=== PATIENT | male | born 1985 | race Caucasian/White ===

== ENCOUNTER 2020-05-09 07:32 | Emergency (ER) | payer OTHER ==
[2020-05-09] MEDS ORDERED: ONDANSETRON 4 MG/2 ML VIAL IVP STA (07:47)
[2020-05-09] MEDS ORDERED: SODIUM CHLORIDE 0.9% 1,000 ML IV STA (07:47)
[2020-05-09] MEDS ORDERED: KETOROLAC 30 MG/ML 1 ML VIAL IVP STA (07:47)
--- NOTE | 2020-05-09 07:59 | ED ---
General Adult HPI - General Chief complaint: Abdominal Pain Stated complaint: left side pain Time Seen by Provider: 05/09/20 07:38 Source: patient, RN notes reviewed Mode of arrival: ambulatory Limitations: no limitations - History of Present Illness Initial comments: 35-year-old male without any significant past medical history presents to the emergency department for a chief complaint of abdominal pain. Patient states this morning on his way to work he had some left lower back pain that has since migrated to his left lower abdomen. States it is a very sharp. Pain. Denies nausea vomiting. Denies diarrhea. States follow with her normal. Denies dysuria.Patient has no other complaints at this time including shortness of breath, chest pain, nausea or vomiting, headache, or visual changes. - Related Data Previous Rx's Medication Instructions Recorded Ibuprofen [Motrin] 600 mg PO Q6HR PRN #20 tab 05/09/20 Ondansetron [Zofran ODT] 4 mg PO Q8HR PRN #15 tab 05/09/20 Tamsulosin [Flomax] 0.4 mg PO DAILY #14 cap 05/09/20 Allergies Allergy/AdvReac Type Severity Reaction Status Date / Time No Known Allergies Allergy Verified 05/09/20 07:36 Review of Systems ROS Statement: Those systems with pertinent positive or pertinent negative responses have been documented in the HPI. ROS Other: All systems not noted in ROS Statement are negative. Past Medical History Past Medical History: No Reported History History of Any Multi-Drug Resistant Organisms: None Reported Past Surgical History: No Surgical Hx Reported Past Psychological History: No Psychological Hx Reported Smoking Status: Never smoker Past Alcohol Use History: None Reported Past Drug Use History: None Reported General Exam Limitations: no limitations General appearance: alert, in no apparent distress Head exam: Present: atraumatic, normocephalic, normal inspection Eye exam: Present: normal appearance, PERRL, EOMI. Absent: scleral icterus, conjunctival injection, periorbital swelling ENT exam: Present: normal exam, mucous membranes moist Neck exam: Present: normal inspection, full ROM. Absent: tenderness, meningismus, lymphadenopathy Respiratory exam: Present: normal lung sounds bilaterally. Absent: respiratory distress, wheezes, rales, rhonchi, stridor Cardiovascular Exam: Present: regular rate, normal rhythm, normal heart sounds. Absent: systolic murmur, diastolic murmur, rubs, gallop, clicks GI/Abdominal exam: Present: soft, normal bowel sounds. Absent: distended, tende rness, guarding, rebound, rigid Back exam: Absent: CVA tenderness (R), CVA tenderness (L) Course Vital Signs 05/09/20 07:35 Temperature 98.0 F Pulse Rate 62 Respiratory 18 Rate Blood Pressure 153/107 O2 Sat by Pulse 99 Oximetry Medical Decision Making - Medical Decision Making Vitals are stable. Patient is hypertensive likely secondary to pain. Physical exam is unremarkable. Abdomen is nontender. Patient completed the left back pain radiating to the abdomen. Denies testicular pain. CBC and CMP are unremarkable. Urinalysis does show 100 red blood cells. Nitrite is negative. CT abdomen and pelvis shows a 0.5-0.6 cm left ureteropelvic junction stone with minimal left hydronephrosis. Patient was given Toradol and had significant improvement in pain. Patient will be treated with Motrin and Zofran and Flomax. If pain is severe he will be given Tylenol 3 for breakthrough pain. Patient will follow-up with urology. I did discuss that this is borderline passable given the size and that it will be beneficial to see urology. X-ray was ob tained for urology purposes. - Lab Data Result diagrams: 05/09/20 07:45 05/09/20 07:45 Lab Results 05/09/20 05/09/20 05/09/20 Range/Units 07:45 07:45 07:45 WBC 9.2 (3.8-10.6) k/uL RBC 5.47 (4.30-5.90) m/uL Hgb 16.3 (13.0-17.5) gm/dL Hct 49.2 (39.0-53.0) % MCV 90.0 (80.0-100.0) fL MCH 29.9 (25.0-35.0) pg MCHC 33.2 (31.0-37.0) g/dL RDW 13.2 (11.5-15.5) % Plt Count 257 (150-450) k/uL Neutrophils % 77 % Lymphocytes % 16 % Monocytes % 4 % Eosinophils % 2 % Basophils % 1 % Neutrophils # 7.1 (1.3-7.7) k/uL Lymphocytes # 1.5 (1.0-4.8) k/uL Monocytes # 0.3 (0-1.0) k/uL Eosinophils # 0.2 (0-0.7) k/uL Basophils # 0.1 (0-0.2) k/uL Sodium 141 (137-145) mmol/L Potassium 3.9 (3.5-5.1) mmol/L Chloride 106 (98-107) mmol/L Carbon Dioxide 27 (22-30) mmol/L Anion Gap 8 mmol/L BUN 15 (9-20) mg/dL Creatinine 1.10 (0.66-1.25) mg/dL Est GFR (CKD-EPI)AfAm >90 (>60 ml/min/1.73 sqM) Est GFR (CKD-EPI)NonAf 88 (>60 ml/min/1.73 sqM) Glucose 110 H (74-99) mg/dL Calcium 9.2 (8.4-10.2) mg/dL Total Bilirubin 1.0 (0.2-1.3) mg/dL AST 31 (17-59) U/L ALT 36 (4-49) U/L Alkaline Phosphatase 70 (38-126) U/L Total Protein 7.5 (6.3-8.2) g/dL Albumin 4.5 (3.5-5.0) g/dL Amylase 53 (30-110) U/L Lipase 40 (23-300) U/L Urine Color Yellow Urine Appearance Cloudy (Clear) Urine pH 7.5 (5.0-8.0) Ur Specific [place] 1.024 (1.001-1.035) Urine Protein Trace H (Negative) Urine Glucose (UA) Negative (Negative) Urine Ketones Negative (Negative) Urine Blood Moderate H (Negative) Urine Nitrite Negative (Negative) Urine Bilirubin Negative (Negative) Urine Urobilinogen 2.0 (<2.0) mg/dL Ur Leukocyte Esterase Negative (Negative) Urine RBC 100 H (0-5) /hpf Urine WBC 1 (0-5) /hpf Ur Squamous Epith Cells <1 (0-4) /hpf Amorphous Sediment Rare H (None) /hpf Urine Bacteria Rare H (None) /hpf Urine Mucus Moderate H (None) /hpf Disposition Clinical Impression: Ureterolithiasis Disposition: HOME SELF-CARE Condition: Good Instructions (If sedation given, give patient instructions): Kidney Stones (ED) Additional Instructions: Please call urology in the next 1-2 days for their nearest appointment. Take Motrin for pain. If pain is severe take Tylenol 3. Take Zofran for nausea. Take Flomax daily as directed. If you've any worsening symptoms such has severe pain or inability to tolerate liquids return here to the emergency department. Prescriptions: Tamsulosin [Flomax] 0.4 mg PO DAILY #14 cap Ibuprofen [Motrin] 600 mg PO Q6HR PRN #20 tab PRN Reason: Pain Ondansetron [Zofran ODT] 4 mg PO Q8HR PRN #15 tab PRN Reason: Nausea Is patient prescribed a controlled substance at d/c from ED?: No Referrals: Lizzette Ryan DO [Primary Care Provider] - 1-2 days Nicho Bagley MD [STAFF PHYSICIAN] - 1-2 days Time of Disposition: 09:11
[2020-05-09 08:08] LABS: Basophils # (A) 0.1 k/uL (0-0.2); Basophils % (A) 1 %; Eosinophils # (A) 0.2 k/uL (0-0.7); Eosinophils % (A) 2 %; HCT 49.2 % (39.0-53.0); HGB 16.3 gm/dL (13.0-17.5); Lymphocytes # (A) 1.5 k/uL (1.0-4.8); Lymphocytes % (A) 16 %; MCH 29.9 pg (25.0-35.0); MCHC 33.2 g/dL (31.0-37.0); Mean Platelet Volume 6.7; Monocytes # (A) 0.3 k/uL (0-1.0); Monocytes % (A) 4 %; Neutrophils # (A) 7.1 k/uL (1.3-7.7); Neutrophils % (A) 77 %; Platelet Count 257 k/uL (150-450); RBC 5.47 m/uL (4.30-5.90); RDW 13.2 % (11.5-15.5); WBC 9.2 k/uL (3.8-10.6)
[2020-05-09 08:14] LABS: Amorphous Sediment,Urine Rare /hpf; Appearance,Urine Cloudy (Clear); Bacteria,Urine Rare /hpf; Bilirubin,Urine Negative (Negative); Blood,Urine Moderate (Negative); Color,Urine Yellow; Glucose,Urine (UA) Negative (Negative); Ketones,Urine Negative (Negative); Leukocyte Esterase,Urine Negative (Negative); Mucus,Urine Moderate /hpf; Nitrite,Urine Negative (Negative); PH, Urine 7.5 (5.0-8.0); Protein,Urine Trace (Negative); RBC,Urine 100 /hpf (0-5); Specific Gravity,Urine 1.024 (1.001-1.035); Squamous Epithelial Cell,Urine <1 /hpf (0-4); WBC,Urine 1 /hpf (0-5)
[2020-05-09 08:21] LABS: ALT 36 U/L (4-49); AST 31 U/L (17-59); African American GFR (CKD) >90 (>60 ml/min/1.73 sqM); Albumin 4.5 g/dL (3.5-5.0); Alkaline Phosphatase 70 U/L (38-126); Amylase 53 U/L (30-110); Anion Gap 8 mmol/L; Calcium 9.2 mg/dL (8.4-10.2); Carbon Dioxide 27 mmol/L (22-30); Chloride 106 mmol/L (98-107); Glucose 110 mg/dL (74-99); Non-African American GFR(CKD) 88 (>60 ml/min/1.73 sqM); Potassium 3.9 mmol/L (3.5-5.1); Sodium 141 mmol/L (137-145); Total Protein 7.5 g/dL (6.3-8.2)
--- NOTE | 2020-05-09 08:36 | CT ---
EXAMINATION TYPE: CT abdomen pelvis w con DATE OF EXAM: 05/09/2020 COMPARISON: None INDICATION: Left lower quadrant pain DLP: 1484 mGycm, Automated exposure control for dose reduction was used. CONTRAST: 100 mL of Isovue 300. Study performed without Oral Contrast TECHNIQUE: Axial images were obtained from above the diaphragm to the pubic rami in the axial plane a t 5 mm thick sections. Reconstructed images are reviewed on the computer in the coronal plane. FINDINGS: Limited CT sections are obtained the lung bases. The lung bases are clear. CT ABDOMEN: Liver: Normal Spleen: Normal Pancreas: Normal Adrenal glands: The adrenal glands are normal. Gallbladder: Normal Kidneys: No masses are evident. No hydronephrosis is present. No cysts are present. Is 0.3 cm calc ification may be in the upper portion left kidney. Calcification may be at the left ureterovesical ju nction with the transverse diameter of 0.5 cm. Minimal Hydronephrosis is present. Calcifications at t he inferior pole right kidney measuring 0.2 cm. Aorta: Normal Inferior vena cava: Normal. CT PELVIS: Some mild wall thickening of the proximal descending colon to nearly the sigmoid colon is present. So me mild thickening may be within the transverse colon. Correlate for mild colitis. Study is without o ral contrast limiting bowel evaluation. Appendix: Normal as visualized. Urinary bladder: Decompressed. This limits bladder evaluation. Genitourinary structures: Prostate is prominent. Osseous structures: No suspicious lytic or sclerotic lesions. IMPRESSIONS: 1. There is a 0.5 to 0.6 cm left ureteral pelvic junction stone with minimal left hydronephrosis. 2. Couple of additional punctate nonobstructing renal stones are present bilaterally. 3. Some mild colitis of predominantly within the descending colon may be present. Correlate with symp toms.
[2020-05-09 09:03] LABS: Blood Urea Nitrogen 15 mg/dL (9-20)
[2020-05-09] MEDS ORDERED: ACET/COD 300 MG/30 MG STARTER PACK 6 TAB BTL PO STA (09:13)
--- NOTE | 2020-05-09 09:13 | XR ---
EXAMINATION TYPE: XR KUB DATE OF EXAM: 05/09/2020 COMPARISON: NONE HISTORY: Pain TECHNIQUE: Single supine KUB image of the abdomen is obtained FINDINGS: Small bowel demonstrates no evidence for dilatation or air fluid levels. Gas and fecal material is seen in non-distended colon. No convincing evidence for pneumoperitoneum. No unusual calcifications. The lung bases are clear. The osseous structures are intact. IMPRESSION: 1. Overall nonobstructive bowel gas pattern.
[2020-05-09 09:26] VITALS: BP 131/88; PULSE 79; RESP 16; TEMP 98.2
== END 2020-05-09 09:25 | disposition home or self-care (01) ==
LOC: EC 07:32
DX: N13.2 Hydronephrosis with renal and ureteral calculous obstruction (principal); I10 Essential (primary) hypertension
CPT/HCPCS: 36415; 80053; 82150; 83690; 85025; 81001; 74018; 74177; 99284; 96374; 96375; 96361; J2405; J1885; Q9967

== ENCOUNTER 2022-02-17 15:12 | Emergency (ER) | payer OTHER ==
[2022-02-17] MEDS ORDERED: SODIUM CHLORIDE 0.9% 1,000 ML IV STA (15:23)
[2022-02-17] MEDS ORDERED: KETOROLAC 15 MG/ML 1 ML VIAL IVP STA (15:32)
--- NOTE | 2022-02-17 15:34 | ED ---
General Adult HPI - General Source: patient Mode of arrival: ambulatory Limitations: no limitations <Harshad Su - Last Filed: 02/17/22 16:04> <Yariel Woodall - Last Filed: 02/17/22 17:42> - General Chief complaint: Abdominal Pain Stated complaint: Kidney Stones Time Seen by Provider: 02/17/22 15:22 - History of Present Illness Initial comments: Dictation was produced using [employer] dictation software. please excuse any grammatical, word or spelling errors. Chief Complaint: 37-year-old male presents emergency Department with 1 week of kidney stone pain History of Present Illness: Is 37-year-old male states that he was traveling when all of a sudden he started to feel right-sided flank pain. Patient has had a kidney stone 3 years ago that he passed on his own. Patient states that he has flank pain that radiates down to his right groin feels exactly the same as 3 years ago. Denies any nausea. No vomiting. Does not notice any changes in the color of his urine. Denies any constitutional symptoms. The ROS documented in this emergency department record has been reviewed and confirmed by me. Those systems with pertinent positive or negative responses have been documented in the HPI. All other systems are other negative and/or noncontributory. PHYSICAL EXAM: General Impression: Alert and oriented x3, not in acute distress HEENT: Normocephalic atraumatic, extra-ocular movements intact, pupils equal and reactive to light bilaterally, mucous membranes moist. Cardiovascular: Heart regular rate and rhythm Chest: Able to complete full sentences, no retractions, no tachypnea Abdomen: abdomen soft, non-tender, non-distended, no organomegaly Musculoskeletal: Pulses present and equal in all extremities, no peripheral edema Motor: no focal deficits noted Neurological: CN II-XII grossly intact, no focal motor or sensory deficits noted Skin: Intact with no visualized rashes Psych: Normal affect and mood ED course: 37-year-old well-appearing male presents to emergency department for clinical presentation consistent with recurrent nephrolithiasis. Vital signs upon arrival are within acceptable limits. Patient care is signed out to Dr. Woodall pending labs and ultrasound (Harshad Su) - Related Data Home Medications Medication Instructions Recorded Confirmed No Known Home Medications 02/17/22 02/17/22 Allergies Allergy/AdvReac Type Severity Reaction Status Date / Time No Known Allergies Allergy Verified 02/17/22 15:17 Review of Systems ROS Other: All systems not noted in ROS Statement are negative. <Harshad Su - Last Filed: 02/17/22 16:04> ROS Other: All systems not noted in ROS Statement are negative. <Yariel Woodall - Last Filed: 02/17/22 17:42> ROS Statement: Those systems with pertinent positive or pertinent negative responses have been documented in the HPI. Past Medical History Past Medical History: No Reported History History of Any Multi-Drug Resistant Organisms: None Reported Past Surgical History: No Surgical Hx Reported Past Psychological History: No Psychological Hx Reported Smoking Status: Never smoker Past Alcohol Use History: Occasional Past Drug Use History: None Reported <Harshad Su - Last Filed: 02/17/22 16:04> General Exam Limitations: no limitations <Harshad Su - Last Filed: 02/17/22 16:04> Course <Yariel Woodall - Last Filed: 02/17/22 17:42> Vital Signs 02/17/22 15:17 Temperature 98 F Pulse Rate 86 Respiratory 18 Rate Blood Pressure 181/111 O2 Sat by Pulse 99 Oximetry - Reevaluation(s) Reevaluation #1: 02/17/22 17:35 Patient was endorsed to me by Dr. Su secondary to shift change. Patient's UA shows 11 RBC's. Patient's renal ultrasound shows mild right-sided hydronephrosis. Patient's symptoms and findings are consistent with right renal colic. Patient states that his pain is improved with the IV Toradol and IV fluids given to him in the ED. Patient denies development of any new pain or symptoms while in the ED. Patient is aware of his test results, and he feels comfortable being discharged home at this time. Patient was counseled about ki dney stones/renal colic, and he was clearly explained return and follow-up instructions. Patient was instructed to follow up closely with urology. Patient was instructed to have a low threshold for return to the emergency department should his symptoms worsen. Will discharge patient home with starter packs for Tylenol #3 and ODT Zofran. Patient feels comfortable with this plan. (Yariel Woodall) Medical Decision Making - Lab Data Result diagrams: 02/17/22 15:49 <Harshad Su - Last Filed: 02/17/22 16:04> - Lab Data Result diagrams: 02/17/22 15:49 02/17/22 15:49 <Yariel Woodall - Last Filed: 02/17/22 17:42> - Lab Data Lab Results 02/17/22 02/17/22 02/17/22 Range/Units 15:49 15:49 15:49 WBC 10.7 H (3.8-10.6) k/uL RBC 4.92 (4.30-5.90) m/uL Hgb 15.5 (13.0-17.5) gm/dL Hct 44.1 (39.0-53.0) % MCV 89.5 (80.0-100.0) fL MCH 31.4 (25.0-35.0) pg MCHC 35.1 (31.0-37.0) g/dL RDW 13.3 (11.5-15.5) % Plt Count 269 (150-450) k/uL MPV 6.8 Neutrophils % 79 % Lymphocytes % 13 % Monocytes % 4 % Eosinophils % 2 % Basophils % 0 % Neutrophils # 8.4 H (1.3-7.7) k/uL Lymphocytes # 1.4 (1.0-4.8) k/uL Monocytes # 0.4 (0-1.0) k/uL Eosinophils # 0.2 (0-0.7) k/uL Basophils # 0.1 (0-0.2) k/uL Sodium 137 (137-145) mmol/L Potassium 5.3 H (3.5-5.1) mmol/L Chloride 105 (98-107) mmol/L Carbon Dioxide 23 (22-30) mmol/L Anion Gap 9 mmol/L BUN 22 H (9-20) mg/dL Creatinine 1.82 H (0.66-1.25) mg/dL Est GFR (CKD-EPI)AfAm 54 (>60 ml/min/1.73 sqM) Est GFR (CKD-EPI)NonAf 47 (>60 ml/min/1.73 sqM) Glucose 110 H (74-99) mg/dL Calcium 8.7 (8.4-10.2) mg/dL Urine Color Yellow Urine Appearance Clear (Clear) Urine pH 6.5 (5.0-8.0) Ur Specific [place] 1.027 (1.001-1.035) Urine Protein Trace H (Negative) Urine Glucose (UA) Negative (Negative) Urine Ketones Negative (Negative) Urine Blood Small H (Negative) Urine Nitrite Negative (Negative) Urine Bilirubin Negative (Negative) Urine Urobilinogen 2.0 (<2.0) mg/dL Ur Leukocyte Esterase Negative (Negative) Urine RBC 11 H (0-5) /hpf Urine WBC 1 (0-5) /hpf Urine Mucus Rare H (None) /hpf - Radiology Data Renal/bladder ultrasound: There is mild right-sided hydronephrosis. There is a 4 mm calculus upper pole left kidney. Hydronephrosis appears new compared to the computed tomography scan of 05/09/2020. There is clearing of left-sided hydronephrosis compared to CT scan. (Yariel Woodall) Disposition <Harshad Su - Last Filed: 02/17/22 16:04> Is patient prescribed a controlled substance at d/c from ED?: No Time of Disposition: 17:38 <Yariel Woodall - Last Filed: 02/17/22 17:42> Clinical Impression: Nephrolithiasis, Renal colic Disposition: HOME SELF-CARE Condition: Stable Instructions (If sedation given, give patient instructions): Kidney Stones (ED) Additional Instructions: Return to the ER immediately should you develop new or worsening pain, a fever, persistent vomiting, shortness of breath, feeling dizzy or faint, or new or worsening symptoms. Follow up closely with urology. Referrals: Aurora Bowers DO [Primary Care Provider] - 1-2 days Nicho Bagley MD [STAFF PHYSICIAN] - 1-2 days
[2022-02-17 16:02] LABS: Basophils # (A) 0.1 k/uL (0-0.2); Basophils % (A) 0 %; Eosinophils # (A) 0.2 k/uL (0-0.7); Eosinophils % (A) 2 %; HCT 44.1 % (39.0-53.0); HGB 15.5 gm/dL (13.0-17.5); Lymphocytes # (A) 1.4 k/uL (1.0-4.8); Lymphocytes % (A) 13 %; MCH 31.4 pg (25.0-35.0); MCHC 35.1 g/dL (31.0-37.0); MCV 89.5 fL (80.0-100.0); Mean Platelet Volume 6.8; Monocytes # (A) 0.4 k/uL (0-1.0); Monocytes % (A) 4 %; Neutrophils # (A) 8.4 k/uL (1.3-7.7); Neutrophils % (A) 79 %; Platelet Count 269 k/uL (150-450); RBC 4.92 m/uL (4.30-5.90); RDW 13.3 % (11.5-15.5); WBC 10.7 k/uL (3.8-10.6)
[2022-02-17 16:12] LABS: Calcium 8.7 mg/dL (8.4-10.2)
[2022-02-17 16:20] LABS: Appearance,Urine Clear (Clear); Bilirubin,Urine Negative (Negative); Blood,Urine Small (Negative); Color,Urine Yellow; Glucose,Urine (UA) Negative (Negative); Ketones,Urine Negative (Negative); Leukocyte Esterase,Urine Negative (Negative); Mucus,Urine Rare /hpf; Nitrite,Urine Negative (Negative); PH, Urine 6.5 (5.0-8.0); Protein,Urine Trace (Negative); RBC,Urine 11 /hpf (0-5); Specific Gravity,Urine 1.027 (1.001-1.035); WBC,Urine 1 /hpf (0-5)
[2022-02-17 16:27] LABS: Potassium 5.3 mmol/L (3.5-5.1)
--- NOTE | 2022-02-17 17:12 | US ---
EXAMINATION TYPE: US kidneys/renal and bladder DATE OF EXAM: 02/17/2022 COMPARISON: CT CLINICAL HISTORY: flank pain. Right flank pain, pt states h/o renal stones EXAM MEASUREMENTS: Right Kidney: 12.7 x 6.1 x 5.4 cm cm Left Kidney: 11.9 x 6.1 x 5.5 cm cm Right Kidney: Unable to visualize calculi, however renal pelvis mildly dilated with mild hydro Left Kidney: No evidence of hydro, probable renal calculi upper pole= 0.4 cm Bladder: Pt voided just prior to exam IMPRESSION: There is mild right-sided hydronephrosis. There is a 4 mm calculus upper pole left kidney. Hydronephr osis appears new compared to the CT scan of 05/09/2020. There is clearing of left-sided hydronephrosis compared to CT SCAN.
[2022-02-17] MEDS ORDERED: ONDANSETRON 4 MG ODT STARTER PACK 2 TAB BTL PO STA (17:37)
[2022-02-17] MEDS ORDERED: ACET/COD 300 MG/30 MG STARTER PACK 6 TAB BTL PO STA (17:37)
[2022-02-17 18:07] VITALS: BP 175/118; PULSE 85; RESP 16; TEMP 97.8
== END 2022-02-17 18:12 | disposition home or self-care (01) ==
LOC: EC 15:12
DX: N20.0 Calculus of kidney (principal); N23 Unspecified renal colic
CPT/HCPCS: 36415; 80048; 85025; 81001; 76770; 99284; 96374; 96361; J1885; S0119

== ENCOUNTER 2022-02-18 17:43 | Emergency (ER) | payer OTHER ==
[2022-02-18 17:49] VITALS: TEMP 98.2
[2022-02-18] MEDS ORDERED: ACETAMINOPHEN TAB 500 MG TAB PO STA (22:31)
--- NOTE | 2022-02-18 22:40 | XR ---
EXAMINATION TYPE: XR chest 2V DATE OF EXAM: 02/18/2022 COMPARISON: NONE HISTORY: Headache. High blood pressure. TECHNIQUE: 2 views FINDINGS: Heart and mediastinum are normal. Lungs are clear of consolidation. There are no hilar mass es. Bony thorax is intact. IMPRESSION: No active cardiopulmonary disease.
[2022-02-18 23:19] LABS: Basophils # (A) 0.1 k/uL (0-0.2); Basophils % (A) 1 %; Eosinophils # (A) 0.2 k/uL (0-0.7); Eosinophils % (A) 2 %; HCT 45.2 % (39.0-53.0); HGB 15.3 gm/dL (13.0-17.5); Lymphocytes # (A) 1.9 k/uL (1.0-4.8); Lymphocytes % (A) 22 %; MCH 30.7 pg (25.0-35.0); MCHC 33.9 g/dL (31.0-37.0); MCV 90.4 fL (80.0-100.0); Mean Platelet Volume 6.6; Monocytes # (A) 0.4 k/uL (0-1.0); Monocytes % (A) 5 %; Neutrophils % (A) 69 %; Platelet Count 304 k/uL (150-450); RDW 13.2 % (11.5-15.5); WBC 8.7 k/uL (3.8-10.6)
[2022-02-18] MEDS ORDERED: cloNIDine HCL 0.1 MG TAB PO STA (23:25)
[2022-02-18 23:52] LABS: Albumin 4.2 g/dL (3.5-5.0); Potassium 4.4 mmol/L (3.5-5.1); Total Bilirubin 0.9 mg/dL (0.2-1.3); Total Protein 7.2 g/dL (6.3-8.2)
--- NOTE | 2022-02-19 00:05 | ED ---
General Adult HPI - General Chief complaint: Recheck/Abnormal Lab/Rx Stated complaint: High BP,Headache Time Seen by Provider: 02/18/22 21:23 Source: patient, RN notes reviewed Mode of arrival: ambulatory Limitations: no limitations - History of Present Illness Initial comments: 37-year-old male presents to the emergency department for evaluation of elevated blood pressure. Patient states he was here yesterday and diagnosed with a kidney stone. States he was told that his blood pressure was elevated and that he should follow up with his PCP. Patient states he is scheduled to see his PCP tomorrow for a recheck. However, patient reports developing a headache while at work today so checked his blood pressure and found it to be elevated. States he went to urgent care and was told he would need to go to the ER. Patient denies any other symptoms associated with elevated blood pressure side from the headache. No fever, chills, blurry vision, dizziness, chest pain, difficulty breathing, shortness of breath, abdominal pain, nausea, vomiting, diarrhea, dysuria, or hematuria. Denies any ongoing discomfort associated with kidney stones. - Related Data Home Medications Medication Instructions Recorded Confirmed No Known Home Medications 02/17/22 02/18/22 Allergies Allergy/AdvReac Type Severity Reaction Status Date / Time No Known Allergies Allergy Verified 02/18/22 21:59 Review of Systems ROS Statement: Those systems with pertinent positive or pertinent negative responses have been documented in the HPI. ROS Other: All systems not noted in ROS Statement are negative. Past Medical History Past Medical History: No Reported History History of Any Multi-Drug Resistant Organisms: None Reported Past Surgical History: No Surgical Hx Reported Past Psychological History: No Psychological Hx Reported Smoking Status: Never smoker Past Alcohol Use History: Occasional Past Drug Use History: None Reported General Exam Limitations: no limitations (Well-developed, well-nourished male in no acute distress. Initial temperature 98.2, pulse 79 respirations 18, blood pressure 186/114, pulse ox 98% on room air.) General appearance: alert, in no apparent distress Eye exam: Present: normal appearance, PERRL, EOMI. Absent: scleral icterus, conjunctival injection, periorbital swelling Neck exam: Present: normal inspection, full ROM. Absent: tenderness, meningismus, lymphadenopathy Respiratory exam: Present: normal lung sounds bilaterally. Absent: respiratory distress, wheezes, rales, rhonchi, stridor Cardiovascular Exam: Present: regular rate, normal rhythm, normal heart sounds. Absent: systolic murmur, diastolic murmur, rubs, gallop, clicks GI/Abdominal exam: Present: soft, normal bowel sounds. Absent: distended, tenderness, guarding, rebound, rigid Neurological exam: Present: alert, oriented X3, CN II-XII intact Psychiatric exam: Present: normal affect, normal mood Course Vital Signs 02/18/22 02/18/22 02/18/22 17:47 20:09 22:58 Temperature 98.2 F Pulse Rate 79 69 89 Respiratory 18 19 18 Rate Blood Pressure 186/114 188/120 O2 Sat by Pulse 98 100 97 Oximetry 02/18/22 02/18/22 02/19/22 23:01 23:36 00:18 Temperature Pulse Rate 80 94 72 Respiratory 20 15 20 Rate Blood Pressure 175/116 162/107 144/87 O2 Sat by Pulse 99 100 97 Oximetry - Reevaluation(s) Reevaluation #1: 02/18/22 23:40 Upon reassessment, patient is noted to be resting comfortably. Reports improvement in headache discomfort. Blood pressure is 159/97. Awaiting remainder of laboratory studies, however intend to discharge patient home to follow up with PCP tomorrow as scheduled. Patient is agreeable with this plan of care. Medical Decision Making - Medical Decision Making 37-year-old male with no significant past medical history substance to the emergency department for evaluation of elevated blood pressure and headache. Upon exam, patient is well-appearing and in no acute distress. He complains of mild headache for which he was given Tylenol and Motrin. Patient is kimmie rologically intact. No chest pain or difficulty breathing. States he was diagnosed with kidney stones yesterday, however is not experiencing any pain or dysuria at this time. Blood pressure was measured and found to be persistently elevated. SBP 160-190, DBP 107-120. Because of his elevated diastolic pressure and complete headache, patient was given a single dose of clonidine with improvement in blood pressure (159/97). Laboratory studies were reviewed and are unremarkable. Chest x-ray is normal. EKG shows sinus rhythm with no ectopy. Patient is scheduled to see his PCP tomorrow and is encouraged to keep this appointment. Return parameters were discussed in detail. Patient verbalizes understanding and agrees with this plan. Attending: Wagner. - Lab Data Result diagrams: 02/18/22 23:06 02/18/22 23:06 Lab Results 02/18/22 02/18/22 02/18/22 Range/Units 23:06 23:06 23:06 WBC 8.7 (3.8-10.6) k/uL RBC 5.00 (4.30-5.90) m/uL Hgb 15.3 (13.0-17.5) gm/dL Hct 45.2 (39.0-53.0) % MCV 90.4 (80.0-100.0) fL MCH 30.7 (25.0-35.0) pg MCHC 33.9 (31.0-37.0) g/dL RDW 13.2 (11.5-15.5) % Plt Count 304 (150-450) k/uL MPV 6.6 Neutrophils % 69 % Lymphocytes % 22 % Monocytes % 5 % Eosinophils % 2 % Basophils % 1 % Neutrophils # 6.0 (1.3-7.7) k/uL Lymphocytes # 1.9 (1.0-4.8) k/uL Monocytes # 0.4 (0-1.0) k/uL Eosinophils # 0.2 (0-0.7) k/uL Basophils # 0.1 (0-0.2) k/uL Sodium 134 L (137-145) mmol/L Potassium 4.4 (3.5-5.1) mmol/L Chloride 101 (98-107) mmol/L Carbon Dioxide 29 (22-30) mmol/L Anion Gap 4 mmol/L BUN 21 H (9-20) mg/dL Creatinine 1.47 H (0.66-1.25) mg/dL Est GFR (CKD-EPI)AfAm 71 (>60 ml/min/1.73 sqM) Est GFR (CKD-EPI)NonAf 61 (>60 ml/min/1.73 sqM) Glucose 84 (74-99) mg/dL Calcium 9.0 (8.4-10.2) mg/dL Total Bilirubin 0.9 (0.2-1.3) mg/dL AST 25 (17-59) U/L ALT 21 (4-49) U/L Alkaline Phosphatase 65 (38-126) U/L Troponin I <0.012 (0.000-0.034) ng/mL Total Protein 7.2 (6.3-8.2) g/dL Albumin 4.2 (3.5-5.0) g/dL - EKG Data EKG shows normal: sinus rhythm Rate: normal EKG Comments: EKG was obtained at 2307 and shows sinus rhythm. Ventricular rate 67, DC interval 157, QRS duration 104, QT/QTC 369/384. Interpretation normal ECG. - Radiology Data Radiology results: report reviewed, image reviewed Two-view chest x-ray was obtained. Report was reviewed in its entirety. Impression per Dr. Babb is no active cardiopulmonary disease. Disposition Clinical Impression: Hypertensive urgency, Headache Disposition: HOME SELF-CARE Condition: Stable Instructions (If sedation given, give patient instructions): Hypertension (ED) Additional Instructions: Follow-up with your PCP as scheduled. May take Tylenol or Motrin if needed for headache. Return to the emergency department with any new, worsening, or concerning symptoms. Is patient prescribed a controlled substance at d/c from ED?: No Referrals: Aurora Bowers DO [Primary Care Provider] - 1-2 days Time of Disposition: 00:25
[2022-02-19] MEDS ORDERED: IBUPROFEN 600 MG TAB PO STA (00:24)
[2022-02-19 00:52] VITALS: RESP 15
[2022-02-19 01:09] VITALS: BP 129/97; PULSE 80
== END 2022-02-19 01:08 | disposition home or self-care (01) ==
LOC: EC 17:43
DX: I16.0 Hypertensive urgency (principal); R51.9 Headache, unspecified
CPT/HCPCS: 36415; 71046; 80053; 84484; 85025; 93005; 99284

== ENCOUNTER → 2022-02-20 | Outpatient (CLI) | payer OTHER ==
--- NOTE | 2022-02-20 14:48 | XR ---
KUB HISTORY: Kidney stones Frontal KUB and 2 images correlated to prior KUB dated 05/09/2020, ultrasound 02/17/2022. There is an oval calcification at the level of the right L4 transverse process measuring approximatel y 5 mm not seen on previous exam. Overlying bowel gas may obscure detail. No evident bowel obstructio n or pneumoperitoneum. Bone mineralization is normal. No left-sided calcification identified with cer tainty. IMPRESSION: Right ureteral calcification
== END | disposition home or self-care (01) ==
LOC: RADXRMAIN 13:25
PROVIDERS: ATTEND Urology
DX: N20.0 Calculus of kidney (principal); N20.1 Calculus of ureter
CPT/HCPCS: 74018

== ENCOUNTER → 2022-03-04 | Outpatient (CLI) | payer OTHER ==
--- NOTE | 2022-03-04 11:14 | XR ---
EXAMINATION TYPE: XR KUB DATE OF EXAM: 03/04/2022 COMPARISON: 02/21/2012 HISTORY: Pain TECHNIQUE: One view abdominal series FINDINGS: The osseous structures are intact. The bowel gas pattern is nonspecific. Calcification seen along th e right paraspinal line is not seen with certainty.. IMPRESSION: 1. Nonspecific abdomen. Correlate for recently passed renal stone.
== END | disposition home or self-care (01) ==
LOC: RADXRMAIN 10:43
PROVIDERS: ATTEND Urology
DX: N20.1 Calculus of ureter (principal)
CPT/HCPCS: 74018

== ENCOUNTER 2023-09-20 13:36 | Emergency (ER) | payer OTHER ==
[2023-09-20] MEDS ORDERED: FLUORESCEIN STRIPS 1 MG STRIP LEFT EYE ONE (13:47)
[2023-09-20] MEDS ORDERED: PROPARACAINE 0.5% OPHTH DROPS 15 ML BTL LEFT EYE STA (13:47)
[2023-09-20 13:49] VITALS: BP 128/75; PULSE 72; RESP 16; TEMP 98
--- NOTE | 2023-09-20 14:02 | ED ---
Eye Problem HPI - General Chief complaint: Eye Problems Stated complaint: Lt eye pain Time Seen by Provider: 09/20/23 13:46 Source: patient, RN notes reviewed Mode of arrival: ambulatory Limitations: no limitations - History of Present Illness Initial comments: 38-year-old well-appearing male presents to the emergency room with complaints of a possible metal shaving in his left eye about 2 hours ago. 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 He does have tearing with some discomfort. No visual changes. States his tetanus shot is up-to-date. No other medical history. MD chief complaint: eye pain, foreign body (possible metal shaving ) -: hour(s) (2) Onset Description: sudden Location: left eye Place: street/outdoors If Injury: other (grinding) Severity scale (1-10): 5 If Pain, Quality: aching Consistency: intermittent Treatments Prior to Arrival: none - Related Data Patient Tetanus UTD: Yes Previous Rx's Medication Instructions Recorded Ciprofloxacin Ophth Soln [Ciloxan 2 drops LEFT EYE Q6H 3 Days #2.5 ml 09/20/23 0.3% Ophth Soln] Allergies Allergy/AdvReac Type Severity Reaction Status Date / Time No Known Allergies Allergy Verified 02/18/22 21:59 Review of Systems ROS Statement: Those systems with pertinent positive or pertinent negative responses have been documented in the HPI. ROS Other: All systems not noted in ROS Statement are negative. Past Medical History Past Medical History: No Reported History History of Any Multi-Drug Resistant Organisms: None Reported Past Surgical History: No Surgical Hx Reported Past Psychological History: No Psychological Hx Reported Smoking Status: Never smoker Past Alcohol Use History: Occasional Past Drug Use History: None Reported General Exam Limitations: no limitations General appearance: alert, in no apparent distress Head exam: Present: atraumatic, normocephalic Eye exam: Present: EOMI, conjunctival injection (mild left eye with tearing). Absent: scleral icterus, nystagmus, periorbital swelling, periorbital tenderness Neck exam: Present: full ROM. Absent: meningismus Respiratory exam: Absent: respiratory distress, accessory muscle use Cardiovascular Exam: Present: regular rate Neurological exam: Present: alert, oriented X3 Psychiatric exam: Present: normal affect, normal mood Skin exam: Present: warm, dry. Absent: cyanosis, diaphoretic, petechiae, pallor Course Vital Signs 09/20/23 13:38 Temperature 98 F Pulse Rate 72 Respiratory 16 Rate Blood Pressure 128/75 O2 Sat by Pulse 98 Oximetry Procedures - Forgein Body Removal Eye Site: Left Anesthetic Used: Proparacaine Eye Exam Technique: Dangelo Lamp Foreign Body Suspected: Metal Forgein Body Removal Technique: Cotton Swab, Needle Remaining Debris: No Patient Tolerated: no complications Medical Decision Making - Medical Decision Making Was pt. sent in by a medical professional or institution (, RACHEL, SENIOR BUSINESS ANALYST, urgent care, hospital, or care home...) When possible be specific @ -No Did you speak to anyone other than the patient for history (EMS, parent, family, police, friend...)? What history was obtained from this source @ -No Did you review nursing and triage notes (agree or disagree)? Why? @ -I reviewed and agree with nursing and triage notes Were old charts reviewed (outside hosp., previous admission, EMS record, old EKG, old radiological studies, urgent care reports/EKG's, care home records)? Report findings @ -No old charts were reviewed Differential Diagnosis (chest pain, altered mental status, abdominal pain women, abdominal pain men, vaginal bleeding, weakness, fever, dyspnea, syncope, headache, dizziness, GI bleed, back pain, seizure, CVA, palpatations, mental health, musculoskeletal)? @ -Corneal abrasion, corneal foreign body, conjunctivitis EKG interpreted by me (3pts min.). @ -n/a X-rays interpreted by me (1pt min.). @ -None done CT interpreted by me (1pt min.). @ -None done U/S interpreted by me (1pt. min.). @ -None done What testing was considered but not performed or refused? (CT, X-rays, U/S, labs)? Why? @ -None What meds were considered but not given or refused? Why? @ -None Did you discuss the management of the patient with other professionals (professionals i.e. RACHEL Dominguez, SENIOR BUSINESS ANALYST, lab, RT, psych nurse, social services designee, fibreglass laminator, t eacher, chief communications officer, dependency case manager)? Give summary @ -No Was smoking cessation discussed for >3mins.? @ -No Was critical care preformed (if so, how long)? @ -No Were there social determinants of health that impacted care today? How? (Homelessness, low income, unemployed, alcoholism, drug addiction, transportation, low edu. Level, literacy, decrease access to med. care, assisted, rehab)? @ -No Was there de-escalation of care discussed even if they declined (Discuss DNR or withdrawal of care, Hospice)? DNR status @ -No What co-morbidities impacted this encounter? (DM, HTN, Smoking, COPD, CAD, Cancer, CVA, ARF, Chemo, Hep., AIDS, mental health diagnosis, sleep apnea, morbid obesity)? @ -None Was patient admitted / discharged? Hospital course, mention meds given and ro liana, prescriptions, significant lab abnormalities, going to OR and other pertinent info. @ -Discharged 38-year-old well-appearing male presents to the emergency room with complaints of a possible metal shaving in his left eye about 2 hours ago. 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 He does have tearing with some discomfort. No visual changes. States his tetanus shot is up-to-date. No other medical history. No visual changes. Mild conjunctival injection. Proparacaine with fluorescein and wood lamps exam did reveal a small metal fragment at 9:00, removed with cotton swab and 18-gauge needle. No evidence of corneal abrasion. Patient will be placed on antibiotic drops prophylactically and follow-up with ophthalmology as needed. Tetanus shot is up-to-date. Case discussed with Dr. Su. Undiagnosed new problem with uncertain prognosis? @ -No Drug Therapy requiring intensive monitoring for toxicity (Heparin, Nitro, Insulin, Cardizem)? @ -No Were any procedures done? @ -Foreign body removal left eye Diagnosis/symptom? @ -Foreign body left eye Acute, or Chronic, or Acute on Chronic? @ -Acute Uncomplicated (without systemic symptoms) or Complicated (systemic symptoms)? @ -Uncomplicated Side effects of treatment? @ -No Exacerbation, Progression, or Severe Exacerbation? @ -No Poses a threat to life or bodily function? How? (Chest pain, [place], [place], pneumonia, PE, COPD, DKA, ARF, appy, cholecystitis, CVA, Diverticulitis, Homicidal, Suicidal, threat to staff... and all critical care pts) @ -No Disposition Clinical Impression: Corneal foreign body Disposition: HOME SELF-CARE Condition: Good Instructions (If sedation given, give patient instructions): Eye Foreign Body (ED) Additional Instructions: Use the eyedrops as prescribed and follow up with ophthalmology next week as needed. Prescriptions: Ciprofloxacin Ophth Soln [Ciloxan 0.3% Ophth Soln] 2 drops LEFT EYE Q6H 3 Days #2.5 ml Is patient prescribed a controlled substance at d/c from ED?: No Referrals: Aurora Bowers DO [Primary Care Provider] - 1-2 days Spencer Shelton MD [STAFF PHYSICIAN] - 1-2 days Time of Disposition: 14:23
== END 2023-09-20 14:50 | disposition home or self-care (01) ==
LOC: EC 13:36
DX: T15.02XA Foreign body in cornea, left eye, initial encounter (principal)
CPT/HCPCS: 65222; 99283

== ENCOUNTER 2024-08-21 13:00 | Emergency (ER) | payer OTHER ==
--- NOTE | 2024-08-21 13:23 | ED ---
Upper Extremity HPI - General Source: patient, RN notes reviewed Mode of arrival: ambulatory Limitations: no limitations <Jordyn Kaur - Last Filed: 08/21/24 13:22> - General Source: patient, RN notes reviewed Limitations: no limitations <Joni Puri - Last Filed: 08/21/24 14:41> - General Chief Complaint: Extremity Injury, Upper Stated Complaint: L hand injury Time Seen by Provider: 08/21/24 13:22 - History of Present Illness Initial Comments: Quick note: 49-year-old male presented to ER with a chief complaint of left hand injury. Patient states he accidentally smashed his 3rd through 5th fingers and gears last night. He does reports paresthesias to left third fourth and fifth digits. No other injuries. (Jordyn Kaur) Patient is a 39-year-old male presenting to the emergency department following injury to his left hand. Patient states at work he accidentally hit his 3 fingers caught in gears. Patient has discomfort of all 3 fingers. No laceration. No other area of injury or concern. Discomfort does increase with movement. (Joni Puri) - Related Data Previous Rx's Medication Instructions Recorded Ciprofloxacin Ophth Soln [Ciloxan 2 drops LEFT EYE Q6H 3 Days #2.5 ml 09/20/23 0.3% Ophth Soln] Allergies Allergy/AdvReac Type Severity Reaction Status Date / Time No Known Allergies Allergy Verified 08/21/24 13:15 Review of Systems ROS Other: All systems not noted in ROS Statement are negative. <Jordyn Kaur - Last Filed: 08/21/24 13:22> ROS Other: All systems not noted in ROS Statement are negative. Constitutional: Denies: fever Eyes: Denies: eye pain ENT: Denies: ear pain Respiratory: Denies: dyspnea Cardiovascular: Denies: chest pain Gastrointestinal: Denies: abdominal pain Neurological: Denies: headache, weakness <Joni Puri - Last Filed: 08/21/24 14:41> ROS Statement: Those systems with pertinent positive or pertinent negative responses have been documented in the HPI. Past Medical History Past Medical History: No Reported History History of Any Multi-Drug Resistant Organisms: None Reported Past Surgical History: No Surgical Hx Reported Past Psychological History: No Psychological Hx Reported Smoking Status: Never smoker Past Alcohol Use History: Occasional Past Drug Use History: None Reported <Jordyn Kaur - Last Filed: 08/21/24 13:22> General Exam Limitations: no limitations <Jordyn Kaur - Last Filed: 08/21/24 13:22> Limitations: no limitations General appearance: alert, in no apparent distress Head exam: Present: normocephalic Eye exam: Present: normal appearance Neck exam: Present: normal inspection Respiratory exam: Present: normal lung sounds bilaterally Cardiovascular Exam: Present: regular rate, normal rhythm GI/Abdominal exam: Present: soft. Absent: tenderness Extremities exam: Present: other (Left 3rd-4th and fifth digits with mild swelling and ecchymosis. Moderate tenderness throughout. Subungual hematoma third digit approximately 100%. Subungual hematoma fifth digit less than 50%) Neurological exam: Present: alert. Absent: motor sensory deficit Psychiatric exam: Present: normal affect, normal mood Skin exam: Present: other (Ecchymosis) <Joni Puri - Last Filed: 08/21/24 14:41> - General Exam Comments Initial Comments: Visual Physical Exam Vital signs reviewed General: Well-appearing, nontoxic, no acute distress. Head: Normocephalic, atraumatic Eyes: PERRLA, EOMI ENT: Airway patent Chest: Nonlabored breathing Skin: No visual rash, normal skin tone, bruising to left third, fourth and fifth left digits. Neuro: Alert and oriented 3 Musculoskeletal: No gross abnormalities (Jordyn Kaur) Course Vital Signs 08/21/24 13:11 Temperature 98.4 F Pulse Rate 74 Respiratory 15 Rate Blood Pressure 141/99 O2 Sat by Pulse 97 Oximetry Procedures - Orthopedic Splinting/Casting Injury #1 Side: left Upper Extremity Injury Location: short arm, hand Upper Extremity Immobilizer: volar splint <Joni Puri - Last Filed: 08/21/24 14:41> - Procedures Initial comment: Trepanation: Verbal informed consent provided. Left middle finger subungual hematoma. Subungual edema hematoma is 100%. Areas cleansed with Betadine and then rinsed with water. Trepanation was done using electrocautery in 3 separate locations with good release of blood. No complications. Patient tolerated procedure well. (Joni Puri) Medical Decision Making <Jordyn Kaur - Last Filed: 08/21/24 13:22> <Joni Puri - Last Filed: 08/21/24 14:41> - Medical Decision Making I performed the quick note portion of this chart. Electronically signed by Jordyn Kaur PA-C (Jordyn Kaur) Was pt. sent in by a medical professional or institution (RACHEL Dominguez, SHIP CEILER, urgent care, hospital, or fdc...) When possible be specific @ -No Did you speak to anyone other than the patient for history (EMS, parent, family, police, friend...)? What history was obtained from this source @ -No Did you review nursing and triage notes (agree or disagree)? Why? @ -I reviewed and agree with nursing and triage notes Were old charts reviewed (outside hosp., previous admission, EMS record, old EKG, old radiological studies, urgent care reports/EKG's, fdc records)? Report findings @ -No old charts were reviewed Differential Diagnosis (chest pain, altered mental status, abdominal pain women, abdominal pain men, vaginal bleeding, weakness, fever, dyspnea, syncope, headache, dizziness, GI bleed, back pain, seizure, CVA, palpatations, mental health, musculoskeletal)? @ -Differential Musculoskeletal Muscular strain, contusion, ligament sprain, fracture, arthritis, septic arthritis, bursitis, cellulitis, muscle spasm, nerve compression, DVT, arterial occlusion, herpes zoster, electrolyte abnormality, tumor.... This is not meant to be in all inclusive list EKG interpreted by me (3pts min.). @ -As above X-rays interpreted by me (1pt min.). @ -Left hand x-ray without acute abnormality CT interpreted by me (1pt min.). @ -None done U/S interpreted by me (1pt. min.). @ -None done What testing was considered but not performed or refused? (CT, X-rays, U/S, labs)? Why? @ -None What meds were considered but not given or refused? Why? @ -None Did you discuss the management of the patient with other professionals (professionals i.e. RACHEL Dominguez, SHIP CEILER, lab, RT, psych nurse, social media campaign manager, relations director, teacher, guest services officer, case reviewer)? Give summary @ -No Was smoking cessation discussed for >3mins.? @ -No Was critical care preformed (if so, how long)? @ -No Were there social determinants of health that impacted care today? How? (Homelessness, low income, unemployed, alcoholism, drug addiction, transportation, low edu. Level, literacy, decrease access to med. care, fci, rehab)? @ -No Was there de-escalation of care discussed even if they declined (Discuss DNR or withdrawal of care, Hospice)? DNR status @ -No What co-morbidities impacted this encounter? (DM, HTN, Smoking, COPD, CAD, Cancer, CVA, ARF, Chemo, Hep., AIDS, mental health diagnosis, sleep apnea, morbid obesity)? @ -None Was patient admitted / discharged? Hospital course, mention meds given and route, prescriptions, significant lab abnormalities, going to OR and other pertinent info. @ -Patient presents with work injury yesterday. No fracture on x-ray. Patient has subungual hematoma that was drained with trephination. Electrocautery used. Splint placed. Patient will be discharged with follow-up. Undiagnosed new problem with uncertain prognosis? @ -No Drug Therapy requiring intensive monitoring for toxicity (Heparin, Nitro, Insulin, Cardizem)? @ -No Were any procedures done? @ -No Diagnosis/symptom? @ -Subungual hematoma, finger contusion Acute, or Chronic, or Acute on Chronic? @ -Acute, acute Uncomplicated (without systemic symptoms) or Complicated (systemic symptoms)? @ -Default Side effects of treatment? @ -No Exacerbation, Progression, or Severe Exacerbation? @ -No Poses a threat to life or bodily function? How? (Chest pain, [place], [place], pneumonia, PE, COPD, DKA, ARF, appy, cholecystitis, CVA, Diverticulitis, Homicidal, Suicidal, threat to staff... and all critical care pts) @ -No (Joni Puri) Disposition <Jordyn Kaur - Last Filed: 08/21/24 13:22> Is patient prescribed a controlled substance at d/c from ED?: No Time of Disposition: 14:40 <Joni Puri - Last Filed: 08/21/24 14:41> Clinical Impression: Subungual hematoma, Finger contusion Disposition: HOME SELF-CARE Condition: Stable Instructions (If sedation given, give patient instructions): Subungual Hematoma (ED), Crush Injury (ED) Additional Instructions: Please follow-up with primary care physician or [facility] or orthopedics in the next day or 2 for recheck. Use caution with using left hand. Return for increased pain, swelling, bleeding, worsening or changing symptoms or any other concerns. Referrals: Aurora Bowers DO [Primary Care Provider] - 1-2 days Mata Sy DO [Doctor of Osteopathic Medicine] - 1-2 days
--- NOTE | 2024-08-21 13:46 | XR ---
Left hand HISTORY: 32 2/5 digits crushed pinky years. COMPARISON: None. TECHNIQUE: 3 views of the left hand were obtained. Left hand. HISTORY: Pain following trauma. COMPARISON: None TECHNIQUE: 3 views left hand were obtained. FINDINGS: There is no fracture, dislocation, intraosseous or intra-articular abnormality. The soft tissues are normal. IMPRESSION: No significant abnormality seen. [facility], Workstation: [id number] 08/21/2024 1:43 PM
[2024-08-21 15:25] VITALS: BP 149/89; PULSE 81; RESP 18; TEMP 98
== END 2024-08-21 15:25 | disposition home or self-care (01) ==
LOC: EC 13:00
CPT/HCPCS: 29125; 99283

== ENCOUNTER → 2025-03-11 | Outpatient (CLI) | payer OTHER ==
--- NOTE | 2025-03-11 09:35 | CT ---
EXAMINATION TYPE: CT abdomen pelvis wo con DATE OF EXAM: 03/11/2025 8:25 AM COMPARISON: 05/09/2020 CLINICAL INDICATION: Male, 40 years old with history of M54.59 low back pain; Flank pain. Hx of renal stones. TECHNIQUE: CT of the abdomen and pelvis without contrast. Coronal and sagittal reconstructions perfor med. CT DLP: 1113.7 mGycm, Automated exposure control for dose reduction was used. FINDINGS: LOWER CHEST: Unremarkable ABDOMEN LIVER: Unremarkable GALLBLADDER AND BILE DUCTS: Unremarkable. PANCREAS: Unremarkable. SPLEEN: Mildly enlarged at 14.1 cm measured on coronal series. ADRENAL GLANDS: Unremarkable. KIDNEYS AND URETERS: 3 nonobstructive left renal stones measuring up to 4 mm. No hydronephrosis or mcdonald spicious ureteral stone identified. PELVIS BLADDER: No evidence for wall thickening or mass given limitations of exam. REPRODUCTIVE: Prostate gland mildly enlarged at 4.4 cm wide. Mild circumferential bladder wall thicke maximilian. ABDOMEN & PELVIS STOMACH AND BOWEL: Small hiatal hernia. No evidence of bowel obstruction. Scattered mild stool. Ash[place] l appendix. Mild scattered left-sided colonic diverticulosis. No pericolonic inflammatory change. PERITONEUM/RETROPERITONEUM: No evidence of pneumoperitoneum or free fluid. VASCULATURE: No evidence of aortic aneurysm. MUSCULOSKELETAL: No acute osseous abnormalities LYMPH NODES: No gross evidence for lymphadenopathy. SOFT TISSUE/ABDOMINAL WALL: Unremarkable IMPRESSION: 1. A few nonobstructive left renal stones measuring up to 4 mm. No hydronephrosis on either side. 2. Scattered left-sided colonic diverticulosis without acute diverticulitis. 3. Small hiatal hernia. 4. Mild splenomegaly at 14.1 cm. Clinically correlate. [facility], , 03/11/2025 9:33 AM
== END | disposition home or self-care (01) ==
LOC: RADCTMAIN 07:56
PROVIDERS: ATTEND Family Medicine
DX: N20.0 Calculus of kidney (principal); K57.30 Diverticulosis of large intestine without perforation or abscess without bleeding; K44.9 Diaphragmatic hernia without obstruction or gangrene; R16.1 Splenomegaly, not elsewhere classified; Z87.442 Personal history of urinary calculi
CPT/HCPCS: 74176